=== PATIENT | male | born 1995 | race African-American/Black ===

== ENCOUNTER 2021-08-04 15:02 | Emergency (ER) | payer OTHER ==
[2021-08-04] MEDS ORDERED: Tetracaine 0.5% PF 4 ML BOT ONE (15:53)
[2021-08-04] MEDS ORDERED: Fluorescein Opthalmic Strip ONE (15:54)
== END 2021-08-04 16:13 | disposition home or self-care (01) ==
LOC: CSHERS 15:02
DX: S05.02XA Injury of conjunctiva and corneal abrasion without foreign body, left eye, initial encounter (principal); S05.01XA Injury of conjunctiva and corneal abrasion without foreign body, right eye, initial encounter; X58.XXXA Exposure to other specified factors, initial encounter
CPT/HCPCS: 99283